=== PATIENT | male | born 1980 | race Caucasian/White ===

== ENCOUNTER 2018-03-10 14:26 | Emergency (ER) | payer MEDICAID ==
[~2018-03-10] VITALS: Ht 172.7 cm; Wt 81.6 kg
--- NOTE | 2018-03-10 14:45 | NUR ---
AAOX3, C/O PROGRESSIVELY L HAND PAIN AND SWELLING, HX of IVDA. PT REPORTS CUT TO HIS LEFT INDEX ON A GLASS 1 WEEK AGO BUT DID NOT DEVELOP PAIN UNTIL LAST NIGHT. AWAITING MD FOR EVAL.
--- NOTE | 2018-03-10 15:13 | NUR ---
CALLED YENY YORK, COMPLIANCE CONSULTANT WAS PAGED.
[2018-03-10] MEDS ORDERED: CEFAZOLIN 2 GM in IV D5W 100 ML IV ONE (15:30)
[2018-03-10] MEDS ORDERED: MORPHINE SULFATE INJ 2 MG/ML DISP.SYRIN IV ONE (15:30)
[2018-03-10 15:55] LABS: BASOPHILS % (AUTO) 0.4 % (0.0-2.0); EOSINOPHILS % (AUTO) 0.6 % (0.0-6.0); HEMATOCRIT 38 % (39-51); HEMOGLOBIN 12.5 g/dL (13.5-17.5); LYMPHOCYTES # (AUTO) 1.5 /CMM (0.8-4.8); LYMPHOCYTES % (AUTO) 15.9 % (20.0-44.0); MEAN CORPUSCULAR HEMOGLOBIN 27 PG (26.0-33.0); MEAN CORPUSCULAR HGB CONC 33 g/dl (31.0-36.0); MEAN CORPUSCULAR VOLUME 83 fL (80-96); MONOCYTES # (AUTO) 0.5 /CMM (0.1-1.30); MONOCYTES % (AUTO) 5.6 % (2.0-12.0); NEUTROPHILS # (AUTO) 7.3 /CMM (1.8-8.9); NEUTROPHILS % (AUTO) 77.5 % (43.0-81.0); PLATELET COUNT (AUTO) 425 /CMM (150-450); RDW COEFFICIENT OF VARIATION 12.7 (11.5-15.0); RED BLOOD CELL COUNT(AUTO) 4.56 MIL/uL (4.5-6.0); WHITE BLOOD COUNT (AUTO) 9.4 K/uL (4.3-11.0)
[2018-03-10] MEDS ORDERED: MORPHINE SULFATE INJ 4 MG/ML DISP.SYRIN ONE (15:59)
[2018-03-10 16:00] LABS: CALCIUM, SERUM 9.3 mg/dL (8.5-10.1); CREATININE 0.9 mg/dL (0.6-1.3); POTASSIUM 4.4 mmol/L (3.5-5.1)
[2018-03-10 16:06] LABS: ALBUMIN 4.1 g/dL (3.4-5.0); BILIRUBIN,DIRECT 0.1 mg/dL (0.0-0.2); BILIRUBIN,TOTAL 0.6 mg/dL (0.2-1.0); TOTAL PROTEIN, SERUM 8.8 g/dL (6.4-8.2)
--- NOTE | 2018-03-10 17:18 | NUR ---
CALLED [facility] SPOKE WITH AARON TO PRESENT A CASE. FAXED OVER FACESHEET
--- NOTE | 2018-03-10 17:49 | NUR ---
AARON FROM [facility] CALLED BACK WITH TRANSPORT INFORMATION. PATIENT WILL BE TRANSFERED [facility] ACCEPTED BY DR PERRY [facility]#[id number]
--- NOTE | 2018-03-10 17:52 | NUR ---
CALLED [facility] FOR TRANPORT ETA OF 1830 WAS GIVEN. TRIP#[id number]
[2018-03-10 18:27] VITALS: BP 134/98
--- NOTE | 2018-03-10 18:27 | NUR ---
Patient discharged to [facility] [place] [facility] [place] Written and verbal after care instructions given. Patient verbalizes understanding of instruction.
== END 2018-03-10 18:35 | disposition short-term general hospital (02) ==
LOC: ER 14:32
DX: M65.842 Other synovitis and tenosynovitis, left hand (principal); W25.XXXA Contact with sharp glass, initial encounter; Y93.89 Activity, other specified; Y92.89 Other specified places as the place of occurrence of the external cause; Y99.8 Other external cause status
CPT/HCPCS: 36415; 73130-TC; 80048-TC; 80076-TC; 85025-TC; 85652-TC; 86140-TC; A4606; J0690; J2270; J7060; L3763; Z7610